=== PATIENT | male | born 1975 | race Caucasian/White ===

== ENCOUNTER 2020-10-11 11:43 | Outpatient (CLI) | payer OTHER, SELFPAY ==
--- NOTE | 2020-10-11 11:56 | XR_ITS ---
WS: [id number] XR chest 2V* [id number] REASON FOR EXAM: SHORTNESS OF BREATH ON EXERTION FINDINGS: Thoracic aorta is unremarkable. The heart and the mediastinum are within normal limits. There appears to be a subtle reticular interstitial pattern in the lung parenchyma peripherally in th e upper lung farah. No other significant pulmonary parenchymal or pleural abnormality is identified. XR/XR chest 2V* [id number] IMPRESSION: Interstitial changes which could be chronic however a subacute process cannot b e excluded. There are no prior chest examinations for comparison.
== END 2020-10-11 11:44 | disposition home or self-care (01) ==
LOC: RAD 11:48
PROVIDERS: PCP Nurse Practitioner Family; Visit Provider Nurse Practitioner Family
DX: R06.02 Shortness of breath (principal); U07.1 COVID-19
CPT/HCPCS: 71046

== ENCOUNTER → 2020-12-20 10:44 | Outpatient (BNVA) | payer OTHER, SELFPAY | PROVIDERS: PCP Nurse Practitioner Family; Referring Provider Nurse Practitioner Family; Visit Provider Podiatrist Foot & Ankle Surgery | DX: M25.572 Pain in left ankle and joints of left foot (principal); M79.89 Other specified soft tissue disorders | CPT/HCPCS: 73610; 73630 ==

== ENCOUNTER 2020-12-20 12:03 | Outpatient (CLI) | payer OTHER, SELFPAY | END 2020-12-20 12:04 | disposition home or self-care (01) | LOC: SPT 12:03 | PROVIDERS: PCP Nurse Practitioner Family; Visit Provider Podiatrist Foot & Ankle Surgery | DX: Z46.89 Encounter for fitting and adjustment of other specified devices (principal); E11.9 Type 2 diabetes mellitus without complications; M76.822 Posterior tibial tendinitis, left leg; M25.572 Pain in left ankle and joints of left foot | CPT/HCPCS: 97760; L1902 ==

== ENCOUNTER 2020-12-23 09:54 | Outpatient (CLI) | payer OTHER, SELFPAY ==
--- NOTE | 2020-12-23 | US_ITS ---
WS: [id number] Complete ABDOMINAL ULTRASOUND HISTORY: ELEVATED LIVER FUNCTION TESTS COMPARISON: None available. Liver: 21.8 cm in length. Markedly enlarged liver. There are coarse echotexture with increased echoge nicity and attenuation. The entire liver is not well visualized due to the attenuation. Gallbladder: Normally distended with no gallstones, wall thickening or pericholecystic fluid. Gallbladder wall thickness: 0.3 cm. Pancreas: Not visualized. CBD: 0.3 cm. Right kidney: 11.3 cm x 6.8 cm x 5.3 cm. No mass, cortical thickening or hydronephrosis. Left kidney: 12.5 cm x 5.4 cm x 6.0 cm. No mass, cortical thickening or hydronephrosis. Spleen: Normal size and echogenicity. Abdominal aorta and IVC are within normal limits. No ascites. US/US abdomen complete* [id number] IMPRESSION: 1. Overall quality of examination is slightly suboptimal due to body habitus. 2. Normal gallbladder. 3. Marked hepatomegaly and hepatic steatosis. 4. No bile duct dilatation. No hydronephrosis.
--- NOTE | 2020-12-23 | USCV_ITS ---
Lizzie Landon Age: 45 Gender: M : 1975 Exam Date: 12/23/2020 11:06 Ordering Phys: Luz Osorio NP Technologist: LEONOR Exam Location: [facility] [place] Indication: LEFT FOOT EDEMA Risk Factors: Previous Vascular Surgery: RIGHT LEFT BP: 168.0 / 110.00 BP: 151.0/ 99.00 0 0 Waveform Velocity (cm/s) Velocity (cm/s) Waveform Iliac Prox 190.7 Triphasic Iliac Mid 145.7 Triphasic Iliac Distal 124.1 Triphasic DRIVER HELPER Triphasic 73.9 SFA Prox 80.5 Triphasic SFA Mid 90.4 Triphasic SFA Dist 70.6 Triphasic POP 32.0 Triphasic MASH PROCESSING OPERATOR 23.7 Biphasic DPA 41.9 Triphasic ALONSO 0.8 FINDINGS Diminished resting ALONSO of 0.8 on the left side Near normal arterial Doppler waveforms CONCLUSIONS Abnormal resting ALONSO, suggestive of mild peripheral artery disease.However in view of the near normal Doppler waveforms, this could be a technical error. No significant arterial obstruction based on the above findings Dr Diana Pool MD [facility] (Electronically Signed) Final Date: 24 December 2020 19:37 S
== END 2020-12-23 09:55 | disposition home or self-care (01) ==
PROVIDERS: PCP Nurse Practitioner Family; Visit Provider Nurse Practitioner Family
DX: R79.89 Other specified abnormal findings of blood chemistry (principal); R60.0 Localized edema; R16.0 Hepatomegaly, not elsewhere classified; K76.0 Fatty (change of) liver, not elsewhere classified
CPT/HCPCS: 76700; 93926

== ENCOUNTER 2022-08-30 12:33 | Outpatient (CLI) | payer MEDICAID, SELFPAY ==
--- NOTE | 2022-08-30 12:44 | USR_ITS ---
PROCEDURE INFORMATION: Exam: US Duplex Left Lower Extremity Arteries Or Arterial Bypass Grafts Exam date and time: 08/30/2022 12:53 PM Age: 47 years old Clinical indication: Edema, localized; Lower extremity, left; Prior surgery; Surgery date: 6+ months; Surgery type: Surgical repair of lt ankle; Patient HX: PT had dvt study and was neg. ; Additional info: Essential htn/type 2 dm/personal HX of nicotinie dependence TECHNIQUE: Imaging protocol: Left Real-time duplex scan of the arteries or arterial bypass grafts of the left lower extremity with 2-D dillard scale, color Doppler flow and spectral waveform analysis. Images documented and saved. COMPARISON: CR XR ankle LT min 3V* [id number] 12/20/2020 10:54 AM FINDINGS: Left common femoral artery: No occlusion or significant stenosis. Normal waveform. Left superficial femoral artery: No occlusion or significant stenosis. Normal waveform. Left popliteal artery: No occlusion or significant stenosis. Normal waveform. Left calf/foot arteries: No occlusion or significant stenosis in the visualized arteries. Normal waveforms. Dorsalis pedis artery is patent. US/[place] [id number] IMPRESSION: No stenosis or occlusion.
== END 2022-08-30 12:34 | disposition home or self-care (01) ==
LOC: RAD 12:35
PROVIDERS: PCP Nurse Practitioner Family; Visit Provider Nurse Practitioner Family
DX: E11.9 Type 2 diabetes mellitus without complications (principal); E87.1 Hypo-osmolality and hyponatremia; I10 Essential (primary) hypertension; R74.8 Abnormal levels of other serum enzymes; Z87.891 Personal history of nicotine dependence; R60.0 Localized edema
CPT/HCPCS: 93926

== ENCOUNTER → 2022-09-18 13:41 | Outpatient (BNVA) | payer OTHER, SELFPAY | PROVIDERS: PCP Nurse Practitioner Family; Visit Provider Psychiatry & Neurology Psychiatry | DX: F43.12 Post-traumatic stress disorder, chronic (principal); Z79.899 Other long term (current) drug therapy | CPT/HCPCS: 80061; 83036 ==

== ENCOUNTER → 2023-05-15 11:03 | Outpatient (BNVA) | payer OTHER, SELFPAY ==
[2022-09-26 16:05] VITALS: BP 137/77; BMI 34.3
== END ==
PROVIDERS: PCP Nurse Practitioner Family; Visit Provider Psychiatry & Neurology Psychiatry
DX: F60.3 Borderline personality disorder (principal); F12.20 Cannabis dependence, uncomplicated; Z79.899 Other long term (current) drug therapy
CPT/HCPCS: 80061; 83036

== ENCOUNTER 2023-05-22 08:28 | Outpatient (CLI) | payer MEDICAID, SELFPAY ==
[2022-09-26 16:05] VITALS: BP 137/77; BMI 34.3
--- NOTE | 2023-05-22 08:34 | US_ITS ---
WS: [id number] RIGHT UPPER QUADRANT ULTRASOUND HISTORY: ABNORMAL LEVELS OF OTHER SERUM ENZYMES COMPARISON: 12/23/2020 RIGHT upper quadrant evaluation is extremely limited by body habitus. Liver: 21.7 cm in length. Enlarged heterogeneous liver. The entire liver is not well visualized. Portal Vein: Not imaged well. Gallbladder: Normally distended gallbladder with no stones or wall thickening. CBD: 0.5 cm Pancreas: Poorly visualized. Head is not well visualized. The body is mildly echogenic. The tail is n ot visualized. Right kidney: 10.4 cm in length. Normal size and echogenicity. No hydronephrosis or mass. Aorta and IVC: Not visualized. No ascites. IMPRESSION: 1. Extremely limited evaluation of the RIGHT upper quadrant due to body habitus. 2. Negative gallbladder. 3. Moderate hepatic steatosis and hepatomegaly.
== END 2023-05-22 08:29 | disposition home or self-care (01) ==
LOC: RAD 08:28
PROVIDERS: PCP Nurse Practitioner Family; Visit Provider Nurse Practitioner Family
DX: R74.8 Abnormal levels of other serum enzymes (principal); E87.1 Hypo-osmolality and hyponatremia; K76.0 Fatty (change of) liver, not elsewhere classified; R16.0 Hepatomegaly, not elsewhere classified
CPT/HCPCS: 76705

== ENCOUNTER → 2023-10-06 08:21 | Outpatient (BNVA) | payer MEDICAID, SELFPAY ==
[2023-05-27 15:06] VITALS: BP 145/97; BMI 34.5
== END ==
PROVIDERS: PCP Nurse Practitioner Family; Visit Provider Podiatrist Foot & Ankle Surgery
DX: M79.672 Pain in left foot (principal); E11.42 Type 2 diabetes mellitus with diabetic polyneuropathy; R60.9 Edema, unspecified; G62.9 Polyneuropathy, unspecified; M66.862 Spontaneous rupture of other tendons, left lower leg; Z79.84 Long term (current) use of oral hypoglycemic drugs
CPT/HCPCS: 73630

== ENCOUNTER 2024-01-09 10:05 | Outpatient (CLI) | payer BC, MEDICAID, SELFPAY ==
[2023-12-31 08:56] VITALS: BP 145/97; BMI 34.5
[2024-01-09 10:47] LABS: Basophils # 0.1 10^3/uL (0.0-0.1); Basophils % 1.1 %; Eosinophils # 0.4 10^3/uL (0.0-0.8); Eosinophils % 6.3 %; Hematocrit 45.4 % (37-53); Lymphocytes % 34.9 %; Mean Corpuscular HGB Conc 33.9 g/dL (30-55); Mean Corpuscular Hemoglobin 30.9 pg (27-33); Mean Platelet Volume 8.4 fL (7.4-10.4); Monocytes # 0.3 10^3/uL (0.2-0.9); Monocytes % 5.5 %; Neutrophils # 2.94 10^3/uL (1.8-7.7); Neutrophils % 51.8 %; Nucleated Red Blood Cells % 0 %; Platelet Count 184 10^3/cmm (157-399); Red Blood Count 4.99 10^6/uL (3.85-5.65); Red Cell Distribution Width 12.4 % (12.1-15.1); White Blood Count 5.67 10^3/uL (3.29-11.43)
[2024-01-09 11:07] LABS: Anion Gap 14.5 (5-19); Blood Urea Nitrogen 9 mg/dL (6-20); C Reactive Protein 3.2 mg/L (0.0-4.9); Calcium 8.6 mg/dL (8.5-10.5); Carbon Dioxide 28 mmol/L (22-29); Chloride 91 mmol/L (98-107); Glomerular Filtration Rate 102.3 mL/min (90-130); Glucose 199 mg/dL (65-115); Osmolality Calculated 272 mOsm/kg (285-295); Potassium 4.5 mmol/L (3.5-5.1); Sodium 129 mmol/L (136-145)
== END 2024-01-09 10:06 | disposition home or self-care (01) ==
LOC: LAB 10:07
PROVIDERS: PCP Nurse Practitioner Family; Visit Provider Thoracic Surgery (Cardiothoracic Vascular Surgery)
DX: L97.921 Non-pressure chronic ulcer of unspecified part of left lower leg limited to breakdown of skin (principal); E11.42 Type 2 diabetes mellitus with diabetic polyneuropathy
CPT/HCPCS: 36415; 80048; 85025; 86140

== ENCOUNTER 2024-01-14 14:30 | Outpatient (CLI) | payer BC, MEDICAID, SELFPAY ==
[2023-12-31 08:56] VITALS: BP 145/97; BMI 34.5
--- NOTE | 2024-01-14 14:30 | MRR_ITS ---
PROCEDURE INFORMATION: Exam: MR Left Lower Extremity Joint Without Contrast; Ankle Exam date and time: 01/14/2024 2:43 PM Age: 48 years old Clinical indication: Other: Non healing ulcer; Additional info: Chronic wound/suspect osteo TECHNIQUE: Imaging protocol: Magnetic resonance imaging of the left lower extremity without contrast. Exam focused on the ankle. COMPARISON: CR XR ankle LT min 3V* [id number] 12/20/2020 10:54 AM FINDINGS: Bones/joints: There is subtle abnormal T1 and T2 signal involving the medial metaphysis of the distal tibia adjacent to the ulcer suspicious for a small focal area of osteomyelitis. Marrow signal involving the distal tibia, fibula, tarsal bones and proximal metatarsals is otherwise normal. No marrow edema, fracture or bone destruction is appreciated. Distal tibiofibular syndesmosis: Unremarkable. No tear. Anterior talofibular ligament: Unremarkable. No tear. Posterior talofibular ligament: Unremarkable. No tear. Calcaneofibular ligament: Unremarkable. No tear. Deltoid ligament complex: Unremarkable. No tear. TENDONS: Flexor tendons of foot: Unremarkable as visualized. Tibialis posterior tendon: Unremarkable as visualized. Peroneal tendons: Unremarkable as visualized. Extensor tendons of foot: Unremarkable as visualized. Tibialis anterior tendon: Unremarkable as visualized. Achilles tendon: Unremarkable as visualized. Tarsal canal (Sinus tarsi): Unremarkable. Normal signal of the fat. Tarsal tunnel: Unremarkable. Soft tissues: There is a medial ulcer with regional cellulitis. No loculated abscess is appreciated. Edema involving the dorsal aspect of the midfoot could represent cellulitis or could represent bland edema. Recommend clinical correlation. Plantar fascia: Plantar fascia is unremarkable. MR/MR ankle LT wo con* [id number] IMPRESSION: 1. Medial ulcer with regional cellulitis. 2. Small focal area of osteomyelitis involving the medial metaphysis of the distal tibia.
--- NOTE | 2024-01-14 14:34 | XRR_ITS ---
PROCEDURE INFORMATION: Exam: XR Sacrum and Coccyx, 2 or More Views Exam date and time: 01/14/2024 2:48 PM Age: 48 years old Clinical indication: Injury or trauma; Fall; Blunt trauma (contusions or hematomas); Injury details: Fell 4 days ago, tailbone pain since; Additional info: Sacrococcygeal disorders/fall, PT having mri too TECHNIQUE: Imaging protocol: XR of the sacrum and coccyx, 2 or more views. COMPARISON: No relevant prior studies available. FINDINGS: Bones/joints: No acute fracture or dislocation. Soft tissues: Soft tissues are unremarkable as visualized. There are scattered vascular calcifications. XR/XR sacrum coccyx min 2V [id number] IMPRESSION: No radiographically apparent fracture. No dislocation.
== END 2024-01-14 14:31 | disposition home or self-care (01) ==
PROVIDERS: PCP Nurse Practitioner Family; Visit Provider Thoracic Surgery (Cardiothoracic Vascular Surgery)
DX: L97.329 Non-pressure chronic ulcer of left ankle with unspecified severity (principal); L03.116 Cellulitis of left lower limb; W19.XXXA Unspecified fall, initial encounter; M53.3 Sacrococcygeal disorders, not elsewhere classified
CPT/HCPCS: 72220; 73721

== ENCOUNTER → 2024-01-21 16:44 | Outpatient (BNVA) | payer BC, SELFPAY ==
[2023-12-31 08:56] VITALS: BP 145/97; BMI 34.5
== END ==
PROVIDERS: PCP Nurse Practitioner Family; Visit Provider Thoracic Surgery (Cardiothoracic Vascular Surgery)
DX: E11.42 Type 2 diabetes mellitus with diabetic polyneuropathy (principal); M86.9 Osteomyelitis, unspecified
CPT/HCPCS: 87070; 87176; 87205

== ENCOUNTER → 2024-02-03 13:47 | Outpatient (BNVA) | payer SELFPAY ==
[2023-12-31 08:56] VITALS: BP 145/97; BMI 34.5
== END ==
PROVIDERS: PCP Nurse Practitioner Family; Visit Provider Family Medicine
DX: E11.9 Type 2 diabetes mellitus without complications (principal); R16.0 Hepatomegaly, not elsewhere classified
CPT/HCPCS: 80053; 80061; 83036

== ENCOUNTER → 2024-02-10 14:30 | Outpatient (BNVA) | payer BC, SELFPAY ==
[2023-12-31 08:56] VITALS: BP 145/97; BMI 34.5
== END ==
PROVIDERS: PCP Nurse Practitioner Family; Referring Provider Thoracic Surgery (Cardiothoracic Vascular Surgery); Visit Provider Internal Medicine Cardiovascular Disease
DX: I45.10 Unspecified right bundle-branch block (principal); E11.621 Type 2 diabetes mellitus with foot ulcer; L97.509 Non-pressure chronic ulcer of other part of unspecified foot with unspecified severity; M86.9 Osteomyelitis, unspecified
CPT/HCPCS: 93005

== ENCOUNTER 2024-02-10 15:40 | Outpatient (CLI) | payer BC, SELFPAY ==
[2023-12-31 08:56] VITALS: BP 145/97; BMI 34.5
--- NOTE | 2024-02-10 15:48 | XRR_ITS ---
PROCEDURE INFORMATION: Exam: XR Chest Exam date and time: 02/10/2024 4:06 PM Age: 48 years old Clinical indication: Condition or disease; Other: Type 2 diabetes mellitus with foot ulcer; Additional info: E11.621 - type 2 diabetes mellitus with foot ulcer TECHNIQUE: Imaging protocol: Radiologic exam of the chest. Views: 2 views. COMPARISON: CR XR chest 2V* [id number] 10/11/2020 12:05 PM FINDINGS: Lungs: Subtle reticular interstitial opacities bilaterally predominantly in the lower lung zones. This appears slightly more prominent compared to prior exam. Probable left basilar atelectasis. No focal consolidation. Pleural spaces: No pneumothorax. No significant pleural effusion. Heart/Mediastinum: The cardiomediastinal silhouette is stable and unremarkable. Bones/joints: Unremarkable. XR/XR chest 2V* [id number] IMPRESSION: 1. No acute cardiopulmonary disease. 2. Slightly progressed reticular interstitial opacities bilaterally with left basilar atelectasis.
[2024-02-10 16:22] LABS: Basophils # 0.1 10^3/uL (0.0-0.1); Basophils % 1.5 %; Eosinophils # 0.3 10^3/uL (0.0-0.8); Eosinophils % 4.9 %; Hematocrit 43.7 % (37-53); Lymphocytes % 31.7 %; Mean Corpuscular HGB Conc 34.1 g/dL (30-55); Mean Corpuscular Volume 88.1 fl (82-101); Mean Platelet Volume 8.4 fL (7.4-10.4); Monocytes # 0.3 10^3/uL (0.2-0.9); Monocytes % 5.5 %; Neutrophils # 3.48 10^3/uL (1.8-7.7); Neutrophils % 56.2 %; Nucleated Red Blood Cells % 0 %; Platelet Count 205 10^3/cmm (157-399); Red Blood Count 4.96 10^6/uL (3.85-5.65); Red Cell Distribution Width 12.4 % (12.1-15.1); White Blood Count 6.18 10^3/uL (3.29-11.43)
[2024-02-10 17:06] LABS: Prealbumin 29.9 mg/dL (20-40)
== END 2024-02-10 15:41 | disposition home or self-care (01) ==
LOC: LAB 15:41
PROVIDERS: PCP Nurse Practitioner Family; Visit Provider Thoracic Surgery (Cardiothoracic Vascular Surgery)
DX: E11.621 Type 2 diabetes mellitus with foot ulcer (principal); L97.529 Non-pressure chronic ulcer of other part of left foot with unspecified severity; M86.9 Osteomyelitis, unspecified; J98.11 Atelectasis; J84.10 Pulmonary fibrosis, unspecified
CPT/HCPCS: 36415; 71046; 84134; 85025; 86140

== ENCOUNTER 2024-02-23 15:20 | Outpatient (CLI) | payer BC, MEDICAID, SELFPAY ==
[2024-02-13 10:17] VITALS: BP 128/74; BMI 34.7
[2024-02-23 16:36] LABS: Anion Gap 15.5 (5-19); Blood Urea Nitrogen 9 mg/dL (6-20); Calcium 9.7 mg/dL (8.5-10.5); Carbon Dioxide 26 mmol/L (22-29); Chloride 92 mmol/L (98-107); Glomerular Filtration Rate 79.1 mL/min (90-130); Glucose 120 mg/dL (65-115); Osmolality Calculated 268 mOsm/kg (285-295); Potassium 4.5 mmol/L (3.5-5.1); Sodium 129 mmol/L (136-145)
== END 2024-02-23 15:21 | disposition home or self-care (01) ==
LOC: LAB 15:22
PROVIDERS: PCP Nurse Practitioner Family
DX: M86.162 Other acute osteomyelitis, left tibia and fibula (principal); E11.622 Type 2 diabetes mellitus with other skin ulcer; L98.499 Non-pressure chronic ulcer of skin of other sites with unspecified severity
CPT/HCPCS: 36415; 80048

== ENCOUNTER 2024-03-16 16:45 | Outpatient (CLI) | payer BC, SELFPAY ==
[2024-02-13 10:17] VITALS: BP 128/74; BMI 34.7
--- NOTE | 2024-03-16 16:30 | CTR_ITS ---
PROCEDURE INFORMATION: Exam: CTA Abdominal Aorta and Bilateral Lower Extremities (Run-off) With Contrast Exam date and time: 03/16/2024 4:49 PM Age: 49 years old Clinical indication: Pain; Other: Left ankle non healing skin graft; Prior surgery; Surgery date: 6+ months; Surgery type: Left ankle skin graft; Patient HX: Pad, non healing skin graft left ankle; Additional info: M86.9 - osteomyelitis, unspecified, full thickness wound to left medial malleolus TECHNIQUE: Imaging protocol: Computed tomographic angiography of the of the abdominal aorta, pelvis and bilateral lower extremities with contrast. 3D rendering (Not supervised by radiologist): MIP and/or 3D reconstructed images were created by the technologist. Radiation optimization: All CT scans at this facility use at least one of these dose optimization techniques: automated exposure control; mA and/or kV adjustment per patient size (includes targeted exams where dose is matched to clinical indication); or iterative reconstruction. Contrast material: OMNIPAQUE 350; Contrast volume: 125 ml; Contrast route: INTRAVENOUS (IV); COMPARISON: MR ankle LT wo con* [id number] 01/14/2024 2:43 PM RADIATION DOSE METRICS: Total DLP (mGy-cm): 1790.27 FINDINGS: Aorta: No aortic aneurysm. No aortic dissection. Moderate aortic atherosclerosis. Celiac trunk and mesenteric arteries: No occlusion or significant stenosis. Renal arteries: Patent without high-grade stenosis. Two accessory right renal arteries noted. Right iliac arteries: No occlusion or significant stenosis. Right femoral/popliteal arteries: No occlusion or significant stenosis. Right infrapopliteal arteries: No occlusion or significant stenosis. Left iliac arteries: No occlusion or significant stenosis. Left femoral/popliteal arteries: No occlusion or significant stenosis. Left infrapopliteal arteries: No occlusion or significant stenosis. Liver: No mass. Gallbladder and biliary ducts: No calcified stones. No ductal dilation. Pancreas: Unremarkable. . Spleen: Unremarkable. Adrenal glands: No nodules. Kidneys and ureters: Unremarkable. Stomach and bowel: Colonic diverticulosis without CT findings of acute diverticulitis. No bowel obstruction. Appendix: No evidence of appendicitis. Urinary bladder: Unremarkable. Reproductive: Unremarkable as visualized. Intraperitoneal space: Unremarkable. No free air. No significant fluid collection. Lymph nodes: No lymphadenopathy. Bones/joints: No acute fracture. Degenerative changes. Mild periosteal reaction along the medial aspect of the distal tibial metaphysis without discrete cortical erosion or overt destructive osseous change. Soft tissues: Small fat containing right inguinal hernia. Subcutaneous edema and skin thickening about the left distal lower extremity, ankle, and foot, most notable in the medial malleolus with small focal ulceration. No discrete drainable collection. No soft tissue gas. CT/CT angio abd aorta runof [id number] IMPRESSION: 1. Distal left lower extremity, ankle, and foot subcutaneous edema and skin thickening, most notably along the medial malleolus with small focal ulceration. No discrete drainable collection or soft tissue gas. Mild periosteal reaction of the subjacent medial tibial metaphysis/medial malleolus, but no overt destructive osseous change. Appearance is overall similar to recent ankle MRI, allowing for differences in imaging modality. 2. Patent three-vessel runoff bilaterally.
[2024-03-16] MEDS: iohexol 350 mg/mL 500 mL Btl (per mL) IV (17:05)
== END 2024-03-16 16:46 | disposition home or self-care (01) ==
LOC: RAD 16:45
PROVIDERS: PCP Nurse Practitioner Family; Visit Provider Podiatrist Foot & Ankle Surgery
DX: M86.9 Osteomyelitis, unspecified (principal); Z01.818 Encounter for other preprocedural examination; I70.0 Atherosclerosis of aorta; K57.30 Diverticulosis of large intestine without perforation or abscess without bleeding; G31.89 Other specified degenerative diseases of nervous system; K40.90 Unilateral inguinal hernia, without obstruction or gangrene, not specified as recurrent; R93.5 Abnormal findings on diagnostic imaging of other abdominal regions, including retroperitoneum
CPT/HCPCS: 75635

== ENCOUNTER 2024-05-03 06:04 | Day surgery (SDC) | payer BC, MEDICAID, SELFPAY ==
[2024-04-20 15:13] VITALS: BP 128/74; BMI 34.7
[2024-05-03] VITALS (9 sets, daily range): BP systolic 123–152; BP diastolic 77–99; PULSE 81–93; RESP 14–20; TEMP 36.1–36.6; O2SAT 90–97; BMI 30.9
[2024-05-03 06:51] LABS: Glucose Point of Care 137 mg/dL (70-110)
[2024-05-03] MEDS: gabapentin 300 mg Capsule PO (06:59)
[2024-05-03] MEDS: sodium chloride 0.9% 1,000 ML 30 ML IV (07:00)
--- NOTE | 2024-05-03 07:29 | ANES.PREANE2 ---
Pre-Anesthetic Assessment Height/Weight: Height 5 ft 11 in Weight 222 lb O2 Del Method Room Air 05/03/24 06:35 Preop Diagnosis: Osteomyelitis left tibia Operation Date: 05/03/24 07:40 Proposed Procedures p Incision of Bone Cortex left distal Tibia(Left) - Arnie Layton DPM s Rotational Skin Flap(Left) - Arnie Layton DPM Was Beta Saul taken within 24 hours: N/A Was Clonidine taken within 24 hours: N/A Last intake: Intake Last Liquid Date 05/02/24 Last Liquid Time 22:00 Last Solid Date 05/02/24 Last Solid Time 22:00 Social Tobacco and No alcohol Exam alert, oriented x 3 and regular rate & rhythm Decreased breath sounds bilaterally Airway Submandibular: within normal limits Cervical ROM: within normal limits Mallampati: Class III Comments: Comments: Very poor dentition, few teeth left. Denies any loose Anesthetic Plan ASA status: 3 Anesthesia: General Other: No prior issues with anesthesia NPO since yesterday evening History of hypertension on losartan Type 2 diabetes, no insulin. Preop BS 137 History of bipolar and PTSD Smokes cannabis Prior EKG showing sinus rhythm with incomplete RBBB Plan for general anesthesia with local via surgeon Medications/Allergies Home Medications ?Medication ?Instructions ?Recorded ?Confirmed ?Last Taken ?Type cyclobenzaprine 5 mg tablet 5 mg PO BID PRN muscle spasm 04/09/21 04/29/24 1 Week Ago History ~04/22/24 losartan 50 mg tablet 50 mg PO DAILY 04/09/21 05/03/24 05/02/24 History metformin 500 mg tablet 500 mg PO BID 04/09/21 05/03/24 05/02/24 History triamcinolone acetonide 0.1 % 1 applic topical BID PRN psoriasis 02/03/24 04/29/24 1 Month Ago Rx topical ointment 2 weeks #30 grams ~03/29/24 aripiprazole 15 mg tablet (Abilify) 15 mg PO DAILY #30 tabs 03/05/24 04/29/24 04/29/24 Rx bupropion HCl 300 mg 24 hr tablet, 300 mg PO QAM #30 tabs 03/05/24 04/29/24 04/29/24 Rx extended release (Wellbutrin XL) buspirone 10 mg tablet 10 mg PO BID #60 tabs 03/05/24 04/29/2425 Rx fluoxetine 40 mg capsule (Prozac) 40 mg PO DAILY #30 caps 03/05/24 05/03/24 05/02/24 Rx gabapentin 100 mg capsule 100 mg PO BID #60 caps 03/05/24 05/03/24 05/02/24 Rx gabapentin 300 mg capsule 300 mg PO .HS #30 caps 03/05/24 05/03/24 05/02/24 Rx prazosin 5 mg capsule 10 mg (2 x 5 mg) PO .HS #60 caps 03/05/24 05/03/24 05/01/24 Rx trazodone 50 mg tablet 100 mg (2 x 50 mg) PO .HS PRN 03/05/24 04/29/24 2 Weeks Ago Rx insomnia #60 tabs ~04/15/24 empagliflozin 10 mg tablet 10 mg PO DAILY #90 tabs 04/28/24 05/03/24 05/02/24 Rx (Jardiance) Allergies Allergy/AdvReac Type Severity Reaction Status Date / Time ibuprofen Allergy Intermediate Unknown Verified 04/29/24 15:44 NSAIDS (Non-Steroidal Allergy Intermediate Unknown Verified 04/29/24 15:44 Anti-Inflamma phenobarbital Allergy UNSURE Verified 04/29/24 15:44 venom-honey bee Allergy UNKNOWN Verified 04/29/24 15:44 Current Medications Generic Name Dose Route Start Last Admin Trade Name Freq PRN Reason Stop Dose Admin Sodium Chloride 1,000 mls @ 30 mls/hr 05/03/24 07:00 05/03/24 07:00 Sodium Chloride 0.9% IV 05/04/24 06:59 30 mls/hr .Q24H KATHERYN Administration PFSH Anesthesia Medical History Hepatomegaly Osteomyelitis of left foot Obesity (BMI 30.0-34.9) Essential hypertension Eczema DM2 (diabetes mellitus, type 2) Cannabis use disorder, moderate, dependence Borderline personality disorder Post-traumatic stress disorder, chronic Diabetic peripheral neuropathy associated with type 2 diabetes mellitus Psychiatric care Neuropathy Bipolar affect, depressed Surgical History Hx of skin graft Family History Other CAD (coronary artery disease) Cancer Social History Smoking and tobacco/nicotine status: former use of tobacco/nicotine Second hand smoke exposure: Yes Alcohol intake: former Substance/Drug Use: current Substance/Drug use frequency: few times a month Other substance/drug use details: when he can get it, has a medical card helps with pain and relaxtion Adopted: Yes Caregiver/support person: No Lives independently: Yes Household members: friend(s) Housing: Manufactured/Mobile home Marital status: Marital status details: 3 times Number of children: 0 Number of grandchildren: 0 Highest education level completed: Some College, No Degree Education level details: [employer], [email or web address] school service: No Current occupational status: disabled Current occupational exposures/hazards: No Pets and animals: Yes Pets & animals: dog(s) Leisure activites: music, games, hunting, fishing and other Leisure activities details: likes camping Sexually active: No Do you think of yourself as: Straight/Heterosexual Current gender identity: Male Camille/Episcopal: Orthodox Special camille needs: No Agree to transfusion: Yes Data Anesthesia Cardiac Studies: No Data to Display
--- NOTE | 2024-05-03 07:43 | W.PM.OPSUD ---
Surgery/Procedure H&P Update DATE OF PROCEDURE: May 03, 2024 DATE H&P PERFORMED: 04/26/24 H&P UPDATE INFORMATION: I have reviewed H&P completed within last 30 days, I have examined patient prior to procedure, No changes to prior documentation and [place] [facility] [place] indicated PREOP DIAGNOSIS: Osteomyelitis left tibia PLANNED PROCEDURE: Operation Date: 05/03/24 07:40 Proposed Procedures p Incision of Bone Cortex left distal Tibia(Left) - Arnie Layton DPM s Rotational Skin Flap(Left) - Arnie Layton DPM
[2024-05-03] MEDS: ceFAZolin 2,000 mg SDV 2000 MG IVP (08:00)
[2024-05-03] MEDS: BUPivacaine 0.5% INJ 30 mL INJECTION (08:10)
[2024-05-03] MEDS: vancomycin 1,000 MG SDV 1000 MG XX (08:30)
--- NOTE | 2024-05-03 08:53 | P.BOP_ITS ---
Date of procedure: 05/03/2024 Surgeon name: Dr. Arnie Layton D.P.M. Business Developer(s) name(s): Parker Procedure(s) performed: Incision bone cortex left tibia with rotational skin flap Description of findings: Osteomyelitis left distal tibia Estimated blood loss: 3 cc Tourniquet time: 43 minutes Specimen(s) removed: Distal tibia left Post-operative diagnosis: Osteomyelitis left distal tibia
--- NOTE | 2024-05-03 08:54 | P.OP_ITS ---
Operative Report Date of procedure: May 03, 2024 Surgeon: Arnie Layton DPM Procedure: Date of procedure: 05/03/2024 Pre-op diagnosis: Left distal tibia osteomyelitis Post-op diagnosis: Same Post-op findings: Soft degeneration of distal tibia medially at the site of osteomyelitis Procedure done: 1. Incision bone cortex left tibia CPT 42573 2. Rotational skin flap left leg CPT 88923 Implants: None Specimens removed: Bone left distal tibia Surgeon: Dr. Arnie Layton DPM Felt Machine Mechanic: Parker Estimated blood loss: 3 cc Tourniquet time: 43 minutes Complications: None Patient is a 49-year-old male that has a history of chronic left lower leg wound with underlying osteomyelitis. The patient has had the aforementioned chief complaint for some time. Conservative treatment measures have been attempted and the patient has opted for surgical intervention at this time. A lengthy discussion regarding the procedure, including risks and complications has been had with the patient and is noted in the recent clinic note. Written and verbal consent have been obtained. All patient questions have been answered to the patient?s satisfaction. No written or verbal guarantees have been given or implied. The patient has been NPO since midnight. The history has been reviewed and the history and physical is current. The signed consent was confirmed and placed in the patient chart. Patient imaging has been reviewed and is consistent with the diagnosis. Under mild sedation, the patient was brought into the operating room and placed on the table in the supine position. IV antibiotics were given by the anesthesia team as preoperative surgical prophylaxis. IV sedation was then performed by the anesthesiateam. Local field block was performed using 0.5% Marcaine plain. A pneumatic tourniquet was then placed about the left thigh. The operative extremity was then prepped and draped in the usual fashion. The extremity was then elevated and exsanguinated before the tourniquet was inflated to 325 mmHg. After inflation, the following procedure was then performed. Attention was directed to the medial aspect of the left distal tibia. Full- thickness ulceration was visualized. Incision was made using #15 blade to excise the ulcer. Dissection was carried down to the level of tibia. Tibia was noted to have soft compromised appearance consistent with osteomyelitis. Curette was used to remove the affected portion of tibia. The site was then irrigated with copious amounts of sterile saline before Simplex P with tobramycin was inserted into the defect. After application of bone cement attention was directed to closure. Using a rotational skin flap technique the wound was closed using 4-0 nylon. Tourniquet was let down and good hyperemic response was noted to all digits of the left foot. Incision site was dressed with Xeroform, Unna boot, 4 x 4 gauze, Kerlix, Ncik bandage. The patient tolerated the procedure and anesthesia well and without complication. The patient was transported from the operating room to the recovery room with vital signs stable and vascular status intact to all digits of the left foot. The patient was given both written and verbal instructions to remain weight-bear as tolerated in cam boot to the operative extremity, to keep dressings/splint clean, dry and intact and to take pain medication as directed. The patient will follow-up in the outpatient setting at their scheduled a ppointment. The patient was discharged with my personal number and was instructed to call if any questions or issues should arise. They were discharged home once anesthesia criteria was met.
--- NOTE | 2024-05-03 09:02 | SUR.OPER ---
ENTERED BONE CULTURE ORDER THROUGH ORDERS, NOT UNDER INTRAOP DOCUMENTATION
--- NOTE | 2024-05-03 10:15 | ANE.PACU2 ---
Inpatient post-anesthesia follow up: Airway intact: Yes Vital signs: Temperature 97.1 F Pulse Rate 89 Respiratory Rate 17 Blood Pressure 137/89 Pulse Oximetry 93 Oxygen Delivery Me thod Room Air Oxygen Flow Rate 10 Fraction of Inspir ed Oxygen Hydration adequate: Yes Nausea and vomiting: No Pain level: 1 Mental status: Baseline
== END 2024-05-03 10:00 | disposition home or self-care (01) ==
PROVIDERS: PCP Family Medicine; Visit Provider Podiatrist Foot & Ankle Surgery
PROC: (CPT 27607; principal; 2024-05-03 07:30)
PROC: (CPT 27607; 2024-05-03 07:30)
DX: E11.69 Type 2 diabetes mellitus with other specified complication (principal); M86.8X6 Other osteomyelitis, lower leg; Z79.899 Other long term (current) drug therapy; Z79.84 Long term (current) use of oral hypoglycemic drugs; Z88.8 Allergy status to other drugs, medicaments and biological substances; Z91.030 Bee allergy status; E66.9 Obesity, unspecified; Z68.31 Body mass index [BMI] 31.0-31.9, adult; I10 Essential (primary) hypertension; F43.12 Post-traumatic stress disorder, chronic; F60.3 Borderline personality disorder; E11.42 Type 2 diabetes mellitus with diabetic polyneuropathy; F31.9 Bipolar disorder, unspecified; Z87.891 Personal history of nicotine dependence
CPT/HCPCS: 27607; 14040; 36416; 82962; 87070; 87176; 87205; 88307; 88311; J0690; J2405; J2704; J3010; J3370; J3490; J7030; L8699

== ENCOUNTER 2024-08-10 13:29 | Outpatient (CLI) | payer BC, MEDICAID, SELFPAY ==
[2024-04-20 15:13] VITALS: BP 128/74; BMI 34.7
[2024-08-10 15:10] LABS: Alanine Aminotransferase 42 U/L (0-41); Albumin Level 4.3 g/dL (3.5-5.2); Alkaline Phosphatase 121 U/L (40-130); Aspartate Amino Transferase 32 U/L (0-40); Globulin 3.1 g/dL (1.3-4.6); Total Bilirubin 0.6 mg/dL (0.15-1.2); Total Protein 7.4 g/dL (6.6-8.7)
== END 2024-08-10 13:30 | disposition home or self-care (01) ==
LOC: LAB 13:36
PROVIDERS: PCP Family Medicine; Visit Provider Nurse Practitioner
DX: R74.8 Abnormal levels of other serum enzymes (principal); K76.0 Fatty (change of) liver, not elsewhere classified
CPT/HCPCS: 80076

== ENCOUNTER → 2024-09-14 09:03 | Outpatient (BNVA) | payer BC, SELFPAY ==
[2024-04-20 15:13] VITALS: BP 128/74; BMI 34.7
== END ==
PROVIDERS: PCP Family Medicine; Visit Provider Family Medicine
DX: E11.9 Type 2 diabetes mellitus without complications (principal)
CPT/HCPCS: 80053; 80061; 83036; 85025